=== PATIENT | male | born 1960 | race Caucasian/White ===

== ENCOUNTER 2025-04-18 13:46 | Emergency (ER) | payer OTHER, SELFPAY ==
[2025-04-18 13:51] VITALS: BP 152/70
--- NOTE | 2025-04-18 15:25 | ED.GENMED ---
History of Present Illness
General
Chief Complaint: Crisis Evaluation
Source: patient
Exam Limitations: none
Time Seen by Provider: 04/18/25 14:30
Nursing documentation reviewed up to this point in time: agreed with
History of Present Illness
History of Present Illness:
64-year-old male with history as noted significant for COPD on chronic oxygen, anxiety/depression who presents to the ER for feeling 'hopeless.' Patient says that he has had significant turmoil in his life recently�it sounds like his has been
having some health issues and patient has been unable to work because of his worsening COPD and chronic oxygen. He says that he feels isolated and alone and he is not sure what to do. He says that he has tried to seek mental health assistance but
has not been able to find anyone to see him due to some financial limitations. He says that he is increasingly hopeless recently and today called some facilities to see if he find placement and was told that he needed to be evaluated by crisis
center. This is why he came to the ER. He denies any suicidality and denies being homicidal. He denies any hallucinations. He denies any drug or alcohol use. He says that he currently lives with his at home.
Review of Systems
Review of Systems
All Other Systems: ROS reviewed and negative except as documented in HPI and ROS
Psychiatric: Reports depression and anxiety; Denies suicidal or hallucinations
Phy Exam
Physical Exam
Physical Exam:
General: Well appearing and non-toxic
HEENT: protecting airway
Neck: appears supple
CV: No evidence of cyanosis
Resp: No accessory muscle use
Abd: Non-distended
Extremities: No deformities
Neuro: Alert
Psych: Depressed mood, normal affect, reasonable insight and judgment
Skin: Intact
Scores
Heart Failure Risk
Heart Failure Risk Score: Not Applicable
Heart Score for Chest Pain Patients
STEMI patient?: Not applicable
Withdrawal Assessment of Alcohol
Withdrawal Assessment Completed?: Not applicable
Course
Orders/Labs/Results
Orders:
Orders
04/18/25 14:27
Crisis Consult Urgent
Reason for Consult: despression/feeling hopeless
Vital Signs
Initial and Last Documented VS:
Initial Vital Signs
Temp Pulse Resp BP Pulse Ox
36.7 C 88 18 152/70 94
04/18/25 13:51 04/18/25 13:51 04/18/25 13:51 04/18/25 13:51 04/18/25 13:51
Last Documented Vital Signs
Temp Pulse Resp BP Pulse Ox
36.7 C 88 18 152/70 94
04/18/25 13:51 04/18/25 13:51 04/18/25 13:51 04/18/25 13:51 04/18/25 13:51
MDM/Problems Addressed
Differential Diagnosis Includes:
Depression
MDM/Problems Addressed:
64-year-old male presents with feeling hopeless and depressed recently. Denies being suicidal or homicidal. Has been struggling to obtain mental health assistance on an outpatient basis and was referred to the ER for crisis assessment. Case was
discussed with crisis at length and they performed an assessment. They are working to help establish patient for outpatient mental health resources. Will plan to discharge with outpatient mental health follow-up plan in place.
*Pulse Oximetry
SaO2: 94
Oxygen Mode of Delivery: Room air
Patient hypoxic: no (94%)
*Critical Care Note
Total Time (30-74mins, 75-104mins- exclusive of procedures): Not Applicable
Patient Management
Discussion with other providers: Other (Discussed with crisis staff)
ED Attending Note
-
Portions of this chart may have been created with voice recognition software.� Occasional wrong word or��sound alike� substitutions may have occurred due to the inherent limitations of voice recognition software.
Discharge Plan
Departure
Discharge Problem:
Depression
Instructions: Depression, Adult (DC)
Activity Restrictions/Additional Instructions:
Thank you for visiting the Emergency Department at [facility].
1. Please schedule a follow up appointment as directed. Call first thing tomorrow morning to make an appointment.
2. If indicated, please take your medications as instructed and indicated on discharge paperwork.
3. If any of your symptoms do not improve, or persist, or become more severe within 6-12 hours, please return to the emergency department for further care.
4. Please return to the emergency department if you develop a headache, neck pain/stiffness, fever greater than 100.4F, chest pain, shortness of breath, persistent nausea, vomiting, slurred speech, difficulty walking, numbness/tingling, weakness,
signs of infection or any other symptoms that are worrisome to you.
Please call [phone] if you have any questions.
Interventions
Interventions:
*Risk Screen - Suicide Last Done: 04/18/25 13:54
*General Assessment Last Done: 04/18/25 13:51
*Neglect/Abuse Screening Last Done: 04/18/25 14:40
*ED- Fall Risk Assessment Last Done: 04/18/25 14:33
*ED COVID-19 Vaccine History Last Done: 04/18/25 14:40
*ED Influenza Vaccine History Last Done: 04/18/25 14:40
ED-Psychological Assessment Last Done: 04/18/25 14:40
Discharge Date and Time
Print Language: GREENLANDIC
== END 2025-04-18 17:22 | disposition home or self-care (01) ==
LOC: EMR 13:46
PROVIDERS: EMERGENCY PHYSICIAN Emergency Medicine; FAMILY PHYSICIAN Family Medicine
DX: F32.A Depression, unspecified (principal); F41.9 Anxiety disorder, unspecified; J44.9 Chronic obstructive pulmonary disease, unspecified; Z99.81 Dependence on supplemental oxygen; Z63.79 Other stressful life events affecting family and household
CPT/HCPCS: 99283